=== PATIENT | male | born 1945 | race Caucasian/White ===

== ENCOUNTER 2021-05-08 13:16 | Inpatient (IN) | payer OTHER, MEDICARE ==
[~2021-05-08] VITALS: Ht 172.7 cm; Wt 95.2 kg
[~2021-05-08 13:16] MED LIST: ACET325 PO; AZIT500 PO; C COMPLEX1000 M1 PO; CEFP200 PO; CRANBERRY500 M1 PO; NIAC500; ONDA4ODT MM; POTA10T PO; Q-Tussin100 MG/5 M PO; Vitamin D1000 UNI1 PO; XARELTO20 MG PO; ZINC220 PO
[2021-05-08 16:47] LABS: Hematocrit 33.1 % (37.0-53.0); Hemoglobin 10.7 g/dL (13.5-17.5); Mean Platelet Volume 9.8 fL (9.1-12.4); Platelet Count 283 K/mm3 (150-400)
[2021-05-08 17:01] LABS: BASOPHILS ABSOLUTE AUTO 0.06 K/mm3 (0.00-0.23); BASOPHILS PERCENT AUTO 1 % (0-2); EOSINOPHILS ABSOLUTE AUTO 0.09 K/mm3 (0.00-0.68); EOSINOPHILS PERCENT AUTO 1 % (0-6); Hematocrit 32.8 % (37.0-53.0); Hemoglobin 10.8 g/dL (13.5-17.5); IMMATURE GRAN ABSOLUTE AUTO 0.12 K/mm3 (0.00-0.10); IMMATURE GRAN PERCENT AUTO 1 % (0-1); LYMPHOCYTES ABSOLUTE AUTO 1.47 K/mm3 (0.84-5.20); LYMPHOCYTES PERCENT AUTO 15 % (21-46); MONOCYTES ABSOLUTE AUTO 1.34 K/mm3 (0.16-1.47); MONOCYTES PERCENT AUTO 14 % (4-13); Mean Corpuscular HGB 31.2 pg (26.0-34.0); Mean Corpuscular HGB Conc 32.9 g/dL (31.5-36.5); Mean Corpuscular Volume 95 fL (80-100); Mean Platelet Volume 9.9 fL (9.1-12.4); NEUTROPHILS ABSOLUTE AUTO 6.76 K/mm3 (1.96-9.15); NEUTROPHILS PERCENT AUTO 69 % (41-73); Platelet Count 278 K/mm3 (150-400); RDW Coefficient Variation 14.7 % (11.7-14.2); RDW Standard Deviation 50.6 fL (35.1-46.3); Red Blood Cell Count 3.46 M/mm3 (4.30-5.90); White Blood Cell Count 9.84 K/mm3 (4.00-11.30)
[2021-05-08 17:02] LABS: Alanine Aminotransfer (ALT/SGP 28 U/L (12-78); Albumin, Blood 2.1 g/dL (3.4-5.0); Albumin/Globulin Ratio 0.4 (0.8-1.8); Alk Phos 59 U/L (50-136); Anion Gap 4 mmol/L (6-16); Aspartate Aminotrans (AST/SGOT 21 U/L (12-37); Bilirubin, Total 0.8 mg/dL (0.1-1.0); Blood Urea Nitrogen 12 mg/dL (8-24); CO2, Blood 29 mmol/L (21-32); Calcium, Blood 8.7 mg/dL (8.5-10.1); Chloride, Blood 101 mmol/L (98-108); Globulin, Blood 5.6 g/dL (2.2-4.0); Glomerular Filtration Rate >60 (60-); Glucose, Blood 101 mg/dL (70-99); Potassium, Blood 3.7 mmol/L (3.5-5.5); Sodium, Blood 134 mmol/L (136-145); Total Protein, Blood 7.7 g/dL (6.4-8.2)
--- NOTE | 2021-05-08 18:30 | NUR ---
SHIFT NOTE MR BULLOCK WAS ADMITTED TO [facility] FROM THE ER AROUND [id number]. A+OX4. PALA. MOIST COUGH SINCE COVID, LUNG SOUNDS DIMINISHED IN THE BASES, TELE ON, SR 90S PER PRECISION MACHINIST. SOME SOB ON 4L NC ON TRANSFER. [facility]. LLE 3+ PITTING EDEMA. DP PULSE 2+ EASY TO PALPATE. RLE 1+ PITTING EDEMA, DP PULSE 2+, EASY TO PALPATE. RIGHT FOOT COOL COMPARED TO LEFT, PT SAID IT'S BEEN THIS WAY SINCE HIS COVID DIAGNOSIS A MONTH AGO. DISCORORATION TO RLE THAT PT SAID IS NOT NEW. UNSTEADY STAND AT SIDE OF BED TO URINATE. PT ORDERED. NO CP. NO DIAPHORESIS. HEPARIN GTT ORDERED PER PHARMACY, PHARMACY TO DETERMINE START TIME DUE TO PT RECEIVING A DOSE OF LOVONOX IN THE ER AT 1530. RT NOTIFIED OF THE ADMISSION.
[2021-05-09 02:19] LABS: BASOPHILS ABSOLUTE AUTO 0.04 K/mm3 (0.00-0.23); BASOPHILS PERCENT AUTO 0 % (0-2); EOSINOPHILS ABSOLUTE AUTO 0.09 K/mm3 (0.00-0.68); EOSINOPHILS PERCENT AUTO 1 % (0-6); Hemoglobin 10.3 g/dL (13.5-17.5); IMMATURE GRAN ABSOLUTE AUTO 0.08 K/mm3 (0.00-0.10); IMMATURE GRAN PERCENT AUTO 1 % (0-1); LYMPHOCYTES ABSOLUTE AUTO 1.29 K/mm3 (0.84-5.20); LYMPHOCYTES PERCENT AUTO 13 % (21-46); MONOCYTES ABSOLUTE AUTO 1.27 K/mm3 (0.16-1.47); MONOCYTES PERCENT AUTO 13 % (4-13); Mean Corpuscular HGB Conc 33.2 g/dL (31.5-36.5); Mean Corpuscular Volume 93 fL (80-100); Mean Platelet Volume 9.4 fL (9.1-12.4); NEUTROPHILS ABSOLUTE AUTO 6.87 K/mm3 (1.96-9.15); NEUTROPHILS PERCENT AUTO 71 % (41-73); Platelet Count 279 K/mm3 (150-400); RDW Coefficient Variation 14.6 % (11.7-14.2); RDW Standard Deviation 50.7 fL (35.1-46.3); Red Blood Cell Count 3.32 M/mm3 (4.30-5.90); White Blood Cell Count 9.64 K/mm3 (4.00-11.30)
[2021-05-09 02:34] LABS: International Normalized Ratio 1.22; Prothrombin Time Results 12.6 Sec (9.7-11.5)
[2021-05-09 02:37] LABS: Alanine Aminotransfer (ALT/SGP 35 U/L (12-78); Albumin/Globulin Ratio 0.4 (0.8-1.8); Alk Phos 64 U/L (50-136); Anion Gap 5 mmol/L (6-16); Aspartate Aminotrans (AST/SGOT 32 U/L (12-37); Bilirubin, Total 0.5 mg/dL (0.1-1.0); Blood Urea Nitrogen 14 mg/dL (8-24); Bun/Creatinine Ratio 23.3 (12.0-20.0); CO2, Blood 27 mmol/L (21-32); Calcium, Blood 8.3 mg/dL (8.5-10.1); Chloride, Blood 101 mmol/L (98-108); Globulin, Blood 5.7 g/dL (2.2-4.0); Glomerular Filtration Rate >60 (60-); Glucose, Blood 115 mg/dL (70-99); Sodium, Blood 133 mmol/L (136-145); Total Protein, Blood 7.7 g/dL (6.4-8.2)
--- NOTE | 2021-05-09 07:28 | NUR ---
SHIFT SUMMARY: PATIENT IS REPORTING PAIN IN LLE AND NECK. TYLENOL WAS GIVEN WITH POOR EFFECT. DR TRAN WAS NOTIFIED AND AN ORDER FOR OXYCODONE 5-10MG Q 6H WAS OBTAINED AND MED WAS GIVEN WITH GOOD EFFECT. LLE HAS 3+EDEMA AND RLE HAS +1 EDEMA. PATIENT IS ASSISTED WITH THE URINAL FOR ELLIMINATING. BED ALARM IN
--- NOTE | 2021-05-09 11:08 | NUR ---
HEPERIN DRIP DOSE ADJUSTED TO 20 U/KG/HR, 36 MLS/HR VERIFIED BY OSEI WEEKS
--- NOTE | 2021-05-09 17:50 | NUR ---
SHIFT SUMMARY PT A&O X4 AND IN PLEASENT MOOD T/O SHIFT. PAIN MEDICATED PER EMAR, PT VERY PAINFUL W/ MOVEMENT OF LLE. SPOUSE AND GRANDDAUGHTER @ BEDSIDE FOR ROUGHLY 3 HOURS DURING VISITING HOURS. HEP DRIP RUNNING @ 36 MLS/HR. TELE IN PLACE RUNNING SR @ 93 PER [facility] TECH. CONT. PULSE OX IN PLACE, 90'S ON 4L NC. PT DOES KEEP MOVING NC CANULA OFF NOSE. COUGHING T/O SHIFT. HIGH TEMP NOTED MEDICATED PER EMAR. CALL LIGHT W/IN REACH. PT DENIES CP.
[2021-05-10 01:11] LABS: BASOPHILS ABSOLUTE AUTO 0.05 K/mm3 (0.00-0.23); BASOPHILS PERCENT AUTO 1 % (0-2); EOSINOPHILS PERCENT AUTO 3 % (0-6); Hematocrit 31.8 % (37.0-53.0); Hemoglobin 10.5 g/dL (13.5-17.5); IMMATURE GRAN ABSOLUTE AUTO 0.09 K/mm3 (0.00-0.10); IMMATURE GRAN PERCENT AUTO 1 % (0-1); LYMPHOCYTES ABSOLUTE AUTO 1.91 K/mm3 (0.84-5.20); LYMPHOCYTES PERCENT AUTO 18 % (21-46); MONOCYTES ABSOLUTE AUTO 1.47 K/mm3 (0.16-1.47); MONOCYTES PERCENT AUTO 14 % (4-13); Mean Corpuscular HGB 31.2 pg (26.0-34.0); Mean Corpuscular Volume 94 fL (80-100); Mean Platelet Volume 9.2 fL (9.1-12.4); NEUTROPHILS ABSOLUTE AUTO 6.61 K/mm3 (1.96-9.15); NEUTROPHILS PERCENT AUTO 63 % (41-73); Platelet Count 273 K/mm3 (150-400); RDW Coefficient Variation 14.6 % (11.7-14.2); RDW Standard Deviation 50.8 fL (35.1-46.3); Red Blood Cell Count 3.37 M/mm3 (4.30-5.90); White Blood Cell Count 10.43 K/mm3 (4.00-11.30)
[2021-05-10 01:27] LABS: International Normalized Ratio 1.19; Prothrombin Time Results 12.4 Sec (9.7-11.5)
[2021-05-10 01:29] LABS: Alanine Aminotransfer (ALT/SGP 31 U/L (12-78); Albumin, Blood 1.8 g/dL (3.4-5.0); Albumin/Globulin Ratio 0.3 (0.8-1.8); Alk Phos 55 U/L (50-136); Anion Gap 4 mmol/L (6-16); Aspartate Aminotrans (AST/SGOT 30 U/L (12-37); Bilirubin, Total 0.4 mg/dL (0.1-1.0); Blood Urea Nitrogen 12 mg/dL (8-24); Bun/Creatinine Ratio 22.6 (12.0-20.0); CO2, Blood 28 mmol/L (21-32); Calcium, Blood 8.1 mg/dL (8.5-10.1); Chloride, Blood 101 mmol/L (98-108); Creatinine, Blood 0.53 mg/dL (0.60-1.20); Globulin, Blood 5.4 g/dL (2.2-4.0); Glomerular Filtration Rate >60 (60-); Glucose, Blood 110 mg/dL (70-99); Magnesium, Blood 1.8 mg/dL (1.6-2.4); Potassium, Blood 3.9 mmol/L (3.5-5.5); Sodium, Blood 133 mmol/L (136-145); Total Protein, Blood 7.2 g/dL (6.4-8.2)
--- NOTE | 2021-05-10 05:27 | NUR ---
SHIFT SUMMARY PT A/O AND COOPERATIVE. PT C/O SEVERE PAIN IN LT. LEG. REPOSITIONED AND MEDICATED WITH OXYCODONE, TYLENOL AND NORCO PER EMAR. DR. BALDWIN AND DR. TRAN WERE NOTIFIED OF PT C/O SEVERE LEFT LEG PAIN WITH NEW ORDERS RECEIVED.HEPARIN GTT INFUSING. RESTING QUIETLY THIS AM WITH BIPAP ON. NO ACUTE DISTRESS.
--- NOTE | 2021-05-10 09:41 | NUR ---
DR. SHARP CONTACTED PT BP 102/57. THIS RN DIRECTED TO ADMIN LASIX IV, TKO NS, ADMIN 1 NORCO FOR PAIN, AND ADMIN IMDUR FOR PULMONARY HPTN. CONTACT DR FOR BP <90, FOR BOLUS ORDER.
--- NOTE | 2021-05-10 19:33 | NUR ---
SHIFT SUMMARY PT A&O X4 AND IN PLEASENT MOOD T/O SHIFT. @ BEDSIDE DURING VISITING HOURS. PT MEDICATED PER EMAR FOR HPTN AND PAIN. AUDIBLE WHEEZES STARTING TO BE PRESENT, REPORTED TO NEXT NURSE. COUGHING AND CALLING OUT IN PAIN T/O SHIFT. REPLACED NC T/O SHIFT, 02 SATS RECOVER QUICKLY WHEN NC IS RETURNED TO NAIRS. PT URINATED FREQUENTLY DUE TO LASIX, URINAL UTILIZED. VSS. CALL LIGHT W/IN REACH. TELE IN PLACE SR @ 66.
--- NOTE | 2021-05-11 01:07 | NUR ---
HEPARIN GTT: 6 APTT WAS 85.4, NO RATE CHANGE PER PHARM. cONTINUE GTT AT 45ML/HR.
--- NOTE | 2021-05-11 07:44 | NUR ---
SHIFT SUMMARY: PATIENT SCREAMS IN PAIN WHEN AN ATTEMP TO REPOSITION. PATIENT IS ENC. TO DO FOOT PUMPS, WHICH HE IS OBSERVED DOING WHEN INSTRUCTED. DRY NON PRO COUGH PERSISTS. RATING PAIN IN LEFT LEG 8/10. NORCO IS GIVEN PER MARE. HEPARIN GTT IS INFUSING AT 45 ML/HR, NO RATE CHANGES THIS SHIFT.
[2021-05-11 08:07] LABS: BASOPHILS ABSOLUTE AUTO 0.05 K/mm3 (0.00-0.23); BASOPHILS PERCENT AUTO 1 % (0-2); EOSINOPHILS ABSOLUTE AUTO 0.36 K/mm3 (0.00-0.68); EOSINOPHILS PERCENT AUTO 4 % (0-6); Hematocrit 29.6 % (37.0-53.0); Hemoglobin 9.8 g/dL (13.5-17.5); IMMATURE GRAN ABSOLUTE AUTO 0.07 K/mm3 (0.00-0.10); IMMATURE GRAN PERCENT AUTO 1 % (0-1); LYMPHOCYTES ABSOLUTE AUTO 1.43 K/mm3 (0.84-5.20); LYMPHOCYTES PERCENT AUTO 17 % (21-46); MONOCYTES PERCENT AUTO 13 % (4-13); Mean Corpuscular HGB 31.5 pg (26.0-34.0); Mean Corpuscular HGB Conc 33.1 g/dL (31.5-36.5); Mean Corpuscular Volume 95 fL (80-100); Mean Platelet Volume 10.4 fL (9.1-12.4); NEUTROPHILS ABSOLUTE AUTO 5.35 K/mm3 (1.96-9.15); NEUTROPHILS PERCENT AUTO 64 % (41-73); Platelet Count 314 K/mm3 (150-400); RDW Coefficient Variation 14.8 % (11.7-14.2); RDW Standard Deviation 51.6 fL (35.1-46.3); Red Blood Cell Count 3.11 M/mm3 (4.30-5.90); White Blood Cell Count 8.36 K/mm3 (4.00-11.30)
[2021-05-11 08:11] LABS: Anion Gap 7 mmol/L (6-16); Blood Urea Nitrogen 11 mg/dL (8-24); Bun/Creatinine Ratio 20.1 (12.0-20.0); CO2, Blood 28 mmol/L (21-32); Calcium, Blood 8.4 mg/dL (8.5-10.1); Chloride, Blood 99 mmol/L (98-108); Creatinine, Blood 0.55 mg/dL (0.60-1.20); Glomerular Filtration Rate >60 (60-); Glucose, Blood 109 mg/dL (70-99); Potassium, Blood 3.8 mmol/L (3.5-5.5); Sodium, Blood 134 mmol/L (136-145)
[2021-05-11 09:18] LABS: Source, Urine Clean Catch
[2021-05-11 09:29] LABS: Appearance, Urine Clear (Clear); Bilirubin, Urine Neg (Neg); Blood, Urine Neg (Neg); Color, Urine Yellow (P-Yellow); Glucose Qualitative, Urine Neg (Neg); Ketones, Urine Neg (Neg); Leukocyte Esterase, Urine Neg (Neg); Nitrite, Urine Neg (Neg); Protein, Urine Neg (Neg); Specific Gravity, Urine 1.015 (1.003-1.022); Urobilinogen, Urine NORM (Normal)
--- NOTE | 2021-05-11 19:18 | NUR ---
SHIFT SUMMARY PT A&O X4 AND IN PLEASENT MOOD T/O SHIFT. PT UP TO COMODE, PT UP TO CHAIR, 2X MOD ASSIST W/ GB. O2 VIA NC 1L. @ BEDSIDE DURING VISITING HOURS, STATES HOPEFUL D/C TOMARROW. VSS. CALL LIGHT W/IN REACH. TELE IN PLACE, AFIB @ 55. PT DOING EXERCISES IN BED. APTT CRIT HIGH OF 104.9, NOTIFIED. PHYSICAL THERAPY COULD NOT WORK W/ PT AGAINST DR. SANCHEZ DUE TO CRITICAL VALUE, PLAN TO WORK W/ PT IN AM.
--- NOTE | 2021-05-12 04:44 | NUR ---
SHIFT SUMMARY: PATIENT IS MOVING BETTER IN THE BED THIS SHIFT. PAIN IS MUCH BETTER, 5/10 AND WAS MEDICATED X1 WITH NORCO WITH GOOD EFFECT. CONTINUES TO RUN LOW GRADE TEMP.
[2021-05-12 08:17] LABS: BASOPHILS ABSOLUTE AUTO 0.04 K/mm3 (0.00-0.23); BASOPHILS PERCENT AUTO 1 % (0-2); EOSINOPHILS ABSOLUTE AUTO 0.38 K/mm3 (0.00-0.68); EOSINOPHILS PERCENT AUTO 5 % (0-6); Hematocrit 30.6 % (37.0-53.0); IMMATURE GRAN ABSOLUTE AUTO 0.06 K/mm3 (0.00-0.10); IMMATURE GRAN PERCENT AUTO 1 % (0-1); LYMPHOCYTES PERCENT AUTO 13 % (21-46); MONOCYTES ABSOLUTE AUTO 0.89 K/mm3 (0.16-1.47); MONOCYTES PERCENT AUTO 12 % (4-13); Mean Corpuscular HGB 30.9 pg (26.0-34.0); Mean Corpuscular HGB Conc 32.7 g/dL (31.5-36.5); Mean Corpuscular Volume 94 fL (80-100); Mean Platelet Volume 9.5 fL (9.1-12.4); NEUTROPHILS ABSOLUTE AUTO 5.18 K/mm3 (1.96-9.15); NEUTROPHILS PERCENT AUTO 69 % (41-73); Platelet Count 348 K/mm3 (150-400); RDW Coefficient Variation 14.6 % (11.7-14.2); RDW Standard Deviation 50.4 fL (35.1-46.3); Red Blood Cell Count 3.24 M/mm3 (4.30-5.90); White Blood Cell Count 7.55 K/mm3 (4.00-11.30)
[2021-05-12] MEDS ORDERED: ACET325 PO (08:23)
[2021-05-12] MEDS ORDERED: ALBU90OI INH (08:24)
[2021-05-12] MEDS ORDERED: Dulcolax5 MG PO (08:24)
[2021-05-12] MEDS ORDERED: CEPH500 PO (08:25)
[2021-05-12] MEDS ORDERED: Magic Bullet10 MG PR (08:25)
[2021-05-12] MEDS ORDERED: CARV3.125 PO (08:25)
[2021-05-12] MEDS ORDERED: Norco 5-325 Ta1 EACH PO (08:26)
[2021-05-12] MEDS ORDERED: FAMO20 PO (08:26)
[2021-05-12] MEDS ORDERED: DOCU100 PO (08:26)
[2021-05-12] MEDS ORDERED: Isosorbide Mono30 MG PO (08:26)
[2021-05-12] MEDS ORDERED: FURO20 PO (08:26)
[2021-05-12] MEDS ORDERED: ONDA4ODT MM (08:27)
[2021-05-12] MEDS ORDERED: MIRALAX17 GM PO (08:27)
[2021-05-12] MEDS ORDERED: SENN187 PO (08:28)
[2021-05-12] MEDS ORDERED: XARELTO20 MG PO (08:28)
[2021-05-12] MEDS ORDERED: LACT PO (08:29)
[2021-05-12] MEDS ORDERED: POTA10T PO (08:29)
[2021-05-12 08:40] LABS: Alanine Aminotransfer (ALT/SGP 35 U/L (12-78); Albumin, Blood 1.9 g/dL (3.4-5.0); Albumin/Globulin Ratio 0.4 (0.8-1.8); Alk Phos 75 U/L (50-136); Anion Gap 4 mmol/L (6-16); Aspartate Aminotrans (AST/SGOT 34 U/L (12-37); Bilirubin, Total 0.5 mg/dL (0.1-1.0); Blood Urea Nitrogen 8 mg/dL (8-24); Bun/Creatinine Ratio 15.6 (12.0-20.0); CO2, Blood 32 mmol/L (21-32); Calcium, Blood 8.9 mg/dL (8.5-10.1); Chloride, Blood 99 mmol/L (98-108); Creatinine, Blood 0.51 mg/dL (0.60-1.20); Globulin, Blood 5.4 g/dL (2.2-4.0); Glomerular Filtration Rate >60 (60-); Glucose, Blood 108 mg/dL (70-99); Potassium, Blood 3.8 mmol/L (3.5-5.5); Sodium, Blood 135 mmol/L (136-145); Total Protein, Blood 7.3 g/dL (6.4-8.2)
--- NOTE | 2021-05-12 18:08 | NUR ---
DISCHARGE PATIENT TRANSPORTED VIA WHEELCHAIR TO PRIVATE VEHICLE. DISCHARGE INSTRUCTIONS EXPLAINED TO PATIENT. PATIENT STATED UNDERSTANDING. PACKET SENT WITH PATIENT. BELONGINGS SENT WITH PATIENT. IV X2 REMOVED WITHOUT DIFFICULTY. TELE REMOVED WITHOUT DIFFICULTY. MEDICATIONS FAXED TO PREFERRED PHARMACY. PATIENT TO SCHEDULE FOLLOW UP APPOINTMENT.
== END 2021-05-12 17:40 | disposition home health service (06) | DRG 175 ==
LOC: ER 13:16 → MEDS 15:45 → ENPENDDIS 05-12 11:43 → MEDS 05-12 17:40
PROVIDERS: ADMIT Family Medicine
PROC: 5A09457 Assistance with Respiratory Ventilation, 24-96 Consecutive Hours, Continuous Positive Airway Pressure (ICD-10-PCS; principal; 2021-05-08)
DX: I26.99 Other pulmonary embolism without acute cor pulmonale (principal); J96.01 Acute respiratory failure with hypoxia; J18.9 Pneumonia, unspecified organism; E87.2 Acidosis; I82.462 Acute embolism and thrombosis of left calf muscular vein; E78.5 Hyperlipidemia, unspecified; G89.29 Other chronic pain; E66.9 Obesity, unspecified; M25.561 Pain in right knee; M25.562 Pain in left knee; K59.00 Constipation, unspecified; U09.9 Post COVID-19 condition, unspecified; I10 Essential (primary) hypertension; Z87.891 Personal history of nicotine dependence; Z68.31 Body mass index [BMI] 31.0-31.9, adult
CPT/HCPCS: 36415; 71045; 80048; 80053; 81003; 81240; 83605; 83735; 83880; 84100; 84145; 84484; 85014; 85018; 85025; 85049; 85220; 85300; 85303; 85306; 85610; 85730; 93005; 93010; 93306; 94640; 94660; 94668; 94761; 94762; 96372; 99285-25; A9270; J0696; J1644; J1650; J1940; J7030

== ENCOUNTER 2021-08-11 17:40 | Emergency (ER) | payer OTHER, MEDICARE ==
[~2021-08-11] VITALS: Ht 172.7 cm; Wt 93.0 kg
[~2021-08-11 17:40] MED LIST changes: +ALBU90OI INH; +CARV3.125 PO; +CEPH500 PO; +DOCU100 PO; +Dulcolax5 MG PO; +FAMO20 PO; +FURO20 PO; +Isosorbide Mono30 MG PO; +LACT PO; +MIRALAX17 GM PO; +Magic Bullet10 MG PR; +Norco 5-325 Ta1 EACH PO; +SENN187 PO
[2021-08-11 19:10] LABS: BASOPHILS ABSOLUTE AUTO 0.06 K/mm3 (0.00-0.23); BASOPHILS PERCENT AUTO 1 % (0-2); EOSINOPHILS ABSOLUTE AUTO 0.37 K/mm3 (0.00-0.68); EOSINOPHILS PERCENT AUTO 5 % (0-6); Hematocrit 38.8 % (37.0-53.0); Hemoglobin 13.6 g/dL (13.5-17.5); IMMATURE GRAN ABSOLUTE AUTO 0.03 K/mm3 (0.00-0.10); IMMATURE GRAN PERCENT AUTO 0 % (0-1); LYMPHOCYTES ABSOLUTE AUTO 2.35 K/mm3 (0.84-5.20); LYMPHOCYTES PERCENT AUTO 30 % (21-46); MONOCYTES ABSOLUTE AUTO 0.96 K/mm3 (0.16-1.47); MONOCYTES PERCENT AUTO 12 % (4-13); Mean Corpuscular HGB 31.8 pg (26.0-34.0); Mean Corpuscular HGB Conc 35.1 g/dL (31.5-36.5); Mean Corpuscular Volume 91 fL (80-100); Mean Platelet Volume 10.4 fL (9.1-12.4); NEUTROPHILS ABSOLUTE AUTO 4.15 K/mm3 (1.96-9.15); NEUTROPHILS PERCENT AUTO 52 % (41-73); Platelet Count 229 K/mm3 (150-400); RDW Coefficient Variation 13.2 % (11.7-14.2); RDW Standard Deviation 43.8 fL (35.1-46.3); Red Blood Cell Count 4.28 M/mm3 (4.30-5.90); White Blood Cell Count 7.92 K/mm3 (4.00-11.30)
[2021-08-11 19:25] LABS: Albumin, Blood 3.5 g/dL (3.4-5.0); Albumin/Globulin Ratio 0.8 (0.8-1.8); Bilirubin, Total 0.3 mg/dL (0.1-1.0); Bun/Creatinine Ratio 33.6 (12.0-20.0); Calcium, Blood 9.2 mg/dL (8.5-10.1); Creatinine, Blood 0.48 mg/dL (0.60-1.20); Globulin, Blood 4.4 g/dL (2.2-4.0); Potassium, Blood 4.1 mmol/L (3.5-5.5); Total Protein, Blood 7.9 g/dL (6.4-8.2)
== END 2021-08-11 22:57 | disposition home or self-care (01) ==
LOC: ER 17:40
PROVIDERS: Physician Assistant
DX: K64.9 Unspecified hemorrhoids (principal); Z79.899 Other long term (current) drug therapy; Z79.01 Long term (current) use of anticoagulants
CPT/HCPCS: 36415; 80053; 85025; 86850; 86900; 86901; 93005; 93010

== ENCOUNTER 2022-03-27 21:00 | Emergency (ER) | payer OTHER ==
[~2022-03-27] VITALS: Ht 172.7 cm; Wt 88.5 kg
[2022-03-27 21:35] LABS: BASOPHILS ABSOLUTE AUTO 0.04 K/mm3 (0.00-0.23); BASOPHILS PERCENT AUTO 1 % (0-2); EOSINOPHILS ABSOLUTE AUTO 0.12 K/mm3 (0.00-0.68); EOSINOPHILS PERCENT AUTO 2 % (0-6); Hematocrit 37.8 % (37.0-53.0); Hemoglobin 13.1 g/dL (13.5-17.5); IMMATURE GRAN ABSOLUTE AUTO 0.02 K/mm3 (0.00-0.10); IMMATURE GRAN PERCENT AUTO 0 % (0-1); LYMPHOCYTES ABSOLUTE AUTO 1.82 K/mm3 (0.84-5.20); LYMPHOCYTES PERCENT AUTO 26 % (21-46); MONOCYTES ABSOLUTE AUTO 0.95 K/mm3 (0.16-1.47); MONOCYTES PERCENT AUTO 13 % (4-13); Mean Corpuscular HGB 30.9 pg (26.0-34.0); Mean Corpuscular HGB Conc 34.7 g/dL (31.5-36.5); Mean Corpuscular Volume 89 fL (80-100); Mean Platelet Volume 9.6 fL (9.1-12.4); NEUTROPHILS ABSOLUTE AUTO 4.14 K/mm3 (1.96-9.15); NEUTROPHILS PERCENT AUTO 58 % (41-73); Platelet Count 229 K/mm3 (150-400); RDW Standard Deviation 49.6 fL (35.1-46.3); Red Blood Cell Count 4.24 M/mm3 (4.30-5.90); White Blood Cell Count 7.09 K/mm3 (4.00-11.30)
[2022-03-27 21:48] LABS: Bun/Creatinine Ratio 21.8 (12.0-20.0); Calcium, Blood 8.9 mg/dL (8.5-10.1); Creatinine, Blood 0.69 mg/dL (0.60-1.20); Potassium, Blood 3.7 mmol/L (3.5-5.5)
[2022-03-27 23:24] LABS: Source, Urine Clean Catch
[2022-03-27 23:40] LABS: Bilirubin, Urine Neg (Neg); Blood, Urine Neg (Neg); Glucose Qualitative, Urine Neg (Neg); Ketones, Urine Neg (Neg); Leukocyte Esterase, Urine Neg (Neg); Nitrite, Urine Neg (Neg); Protein, Urine Neg (Neg); Specific Gravity, Urine 1.015 (1.003-1.022); Urobilinogen, Urine NORM (Normal); pH, Urine 6.5 (5.0-8.0)
[2022-03-27 23:41] LABS: Appearance, Urine Clear (Clear); Color, Urine Yellow (P-Yellow); U Amphetamine Screen Not Detected; U Barbituate Screen Not Detected; U Benzodiazapine Screen Not Detected; U Buprenorphine Screen Not Detected; U Cannabinoids Screen Not Detected; U Cocaine Screen Not Detected; U Methadone Screen Not Detected; U Methamphetamine Screen Not Detected; U Opiates Screen Not Detected; U Oxycodone Screen Not Detected; U Phencyclidine Screen Not Detected; U Propoxyphene Screen Not Detected
== END 2022-03-28 03:45 | disposition home or self-care (01) ==
LOC: ER 21:00
PROVIDERS: Student in an Organized Health Care Education/Training Program
DX: R47.9 Unspecified speech disturbances (principal); R41.0 Disorientation, unspecified; I10 Essential (primary) hypertension; Z87.891 Personal history of nicotine dependence; Z79.899 Other long term (current) drug therapy; Z79.01 Long term (current) use of anticoagulants
CPT/HCPCS: 70450; 80048; 81003; 82947; 85025; 93005; 93010

== ENCOUNTER 2023-08-30 21:54 | Emergency (ER) | payer OTHER ==
[~2023-08-30] VITALS: Ht 180.3 cm; Wt 158.8 kg
[2023-08-30] MEDS ORDERED: HYDROmorphone HCl/Pf 1MG SYR IV ONE (22:15)
[2023-08-30 22:19] LABS: BASOPHILS ABSOLUTE AUTO 0.03 K/mm3 (0.00-0.23); BASOPHILS PERCENT AUTO 0 % (0-2); EOSINOPHILS ABSOLUTE AUTO 0.18 K/mm3 (0.00-0.68); EOSINOPHILS PERCENT AUTO 2 % (0-6); Hematocrit 31.8 % (37.0-53.0); Hemoglobin 10.5 g/dL (13.5-17.5); IMMATURE GRAN ABSOLUTE AUTO 0.02 K/mm3 (0.00-0.10); IMMATURE GRAN PERCENT AUTO 0 % (0-1); LYMPHOCYTES ABSOLUTE AUTO 1.61 K/mm3 (0.84-5.20); LYMPHOCYTES PERCENT AUTO 20 % (21-46); MONOCYTES ABSOLUTE AUTO 1.12 K/mm3 (0.16-1.47); MONOCYTES PERCENT AUTO 14 % (4-13); Mean Corpuscular HGB 29.7 pg (26.0-34.0); Mean Corpuscular Volume 90 fL (80-100); Mean Platelet Volume 9.3 fL (9.1-12.4); NEUTROPHILS ABSOLUTE AUTO 5.06 K/mm3 (1.96-9.15); NEUTROPHILS PERCENT AUTO 63 % (41-73); Platelet Count 337 K/mm3 (150-400); RDW Coefficient Variation 13.7 % (11.7-14.2); Red Blood Cell Count 3.54 M/mm3 (4.30-5.90); White Blood Cell Count 8.02 K/mm3 (4.00-11.30)
[2023-08-30 22:37] LABS: Albumin, Blood 2.5 g/dL (3.4-5.0); Albumin/Globulin Ratio 0.5 (0.8-1.8); Bilirubin, Total 0.4 mg/dL (0.1-1.0); Bun/Creatinine Ratio 25.3 (12.0-20.0); Creatinine, Blood 0.55 mg/dL (0.60-1.20); Globulin, Blood 4.8 g/dL (2.2-4.0); Potassium, Blood 4.2 mmol/L (3.5-5.5); Total Protein, Blood 7.3 g/dL (6.4-8.2)
[2023-08-31] MEDS ORDERED: HYDROmorphone HCl/Pf 1MG SYR IV ONE ×3 (00:25→05:45)
[2023-08-31] MEDS ORDERED: OXYACE7.5T PO (07:49)
[2023-08-31 08:15] VITALS: BP 158/79
== END 2023-08-31 08:28 | disposition home or self-care (01) ==
LOC: ER 21:54
PROVIDERS: Emergency Medicine
DX: T84.84XA Pain due to internal orthopedic prosthetic devices, implants and grafts, initial encounter (principal); M17.11 Unilateral primary osteoarthritis, right knee; I10 Essential (primary) hypertension; Y79.2 Prosthetic and other implants, materials and accessory orthopedic devices associated with adverse incidents; Z79.899 Other long term (current) drug therapy; Z79.02 Long term (current) use of antithrombotics/antiplatelets; Z96.641 Presence of right artificial hip joint
CPT/HCPCS: 73502; 73560-RT; 73620; 73700; 80053; 85025; 86140; J1170

== ENCOUNTER 2023-09-02 10:41 | Inpatient (IN) | payer OTHER ==
[~2023-09-02] VITALS: Ht 172.7 cm; Wt 97.5 kg
[~2023-09-02 10:41] MED LIST changes: +OXYACE7.5T PO
[2023-09-02] MEDS ORDERED: Morphine Sulfate 4 MG/1 ML Injection IV ONE (12:20)
[2023-09-02 12:26] LABS: BASOPHILS ABSOLUTE AUTO 0.04 K/mm3 (0.00-0.23); BASOPHILS PERCENT AUTO 0 % (0-2); EOSINOPHILS PERCENT AUTO 1 % (0-6); Hemoglobin 10.5 g/dL (13.5-17.5); IMMATURE GRAN ABSOLUTE AUTO 0.07 K/mm3 (0.00-0.10); IMMATURE GRAN PERCENT AUTO 1 % (0-1); LYMPHOCYTES ABSOLUTE AUTO 1.05 K/mm3 (0.84-5.20); LYMPHOCYTES PERCENT AUTO 10 % (21-46); MONOCYTES ABSOLUTE AUTO 1.41 K/mm3 (0.16-1.47); MONOCYTES PERCENT AUTO 14 % (4-13); Mean Corpuscular HGB 29.6 pg (26.0-34.0); Mean Corpuscular HGB Conc 32.8 g/dL (31.5-36.5); Mean Corpuscular Volume 90 fL (80-100); Mean Platelet Volume 9.6 fL (9.1-12.4); NEUTROPHILS ABSOLUTE AUTO 7.39 K/mm3 (1.96-9.15); NEUTROPHILS PERCENT AUTO 74 % (41-73); Platelet Count 315 K/mm3 (150-400); RDW Coefficient Variation 13.6 % (11.7-14.2); Red Blood Cell Count 3.55 M/mm3 (4.30-5.90); White Blood Cell Count 10.06 K/mm3 (4.00-11.30)
[2023-09-02 12:52] LABS: Bun/Creatinine Ratio 25.8 (12.0-20.0); Calcium, Blood 9.3 mg/dL (8.5-10.1); Creatinine, Blood 0.58 mg/dL (0.60-1.20); Potassium, Blood 4.1 mmol/L (3.5-5.5)
[2023-09-02] MEDS ORDERED: Vancomycin HCL 2,000 MG in NS 270 ML IV ONE (14:05)
[2023-09-02] MEDS ORDERED: CefTRIAXone Sodium 2,000 MG in NS 100 ML IV ONE (14:10)
[2023-09-02] MEDS ORDERED: HYDROmorphone HCl/Pf 1MG SYR IV ONE (15:05)
[2023-09-02] MEDS ORDERED: Albuterol HFA200 ACT/6.7 GM INH INH PRN (19:10)
[2023-09-02] MEDS ORDERED: Ondansetron HCl 2 MG / ML 2ML Vial IV PRN (19:15)
[2023-09-02] MEDS ORDERED: FentaNYL Citrate 50 MCG/ML 2 ML Injection IV PRN (19:45)
[2023-09-02] MEDS ORDERED: Acetaminophen 500 MG Tab PO PRN (19:45)
[2023-09-02] MEDS ORDERED: OxyCODONE 5 mg/Acetamin 325 mg TABLET PO PRN (19:45)
[2023-09-02] MEDS ORDERED: Albuterol 2.5 MG/3 ML VIAL INH PRN (19:50)
[2023-09-02] MEDS ORDERED: Furosemide 10 MG/ML 4ML Vial IV ONE (20:00)
[2023-09-02] MEDS ORDERED: Ketorolac Tromethamine 30mg Vial IV ONE (20:00)
[2023-09-02] MEDS ORDERED: Furosemide 10 MG/ML 4ML Vial IV SCH (20:00)
[2023-09-02] MEDS ORDERED: Ketorolac Tromethamine 30mg Vial ONE (20:49)
[2023-09-02] MEDS ORDERED: Furosemide 10 MG/ML 4ML Vial ONE (20:49)
[2023-09-02] MEDS ORDERED: OxyCODONE 5 mg/Acetamin 325 mg TABLET ONE (20:54)
[2023-09-02 22:08] VITALS: BP 134/65
--- NOTE | 2023-09-02 22:10 | NUR ---
ARRIVAL TO UNIT PT ARRIVED TO UNIT FROM ED VIA GOURNEY. A&0 x4. VSS. PT IN 12/22 PAIN WITH MOVEMENT IN RLE, LOCALIZED TO R KNEE. R KNEE SWOLLEN, FIRM TO PALPATION. TOLREATING ORALS. PT STATES HIS GLASSESS ARE AT HOME WITH HIS , PT HUSLIA BUT DENIES USE OF HEARING AIDS. USES URINAL TO VOID. PT DENIES WANT TO AMBULATE R/T PAIN. PT PERSONAL WHEELCHAIR IN ROOM, PT STATES HE ALSO USES A WALKER/CANE AT HOME TO AMBULATE. PT ORIENTED TO ROOM, CALL LIGHT IN REACH, BED IN LOWEST POSITION.
[2023-09-03 03:51] VITALS: BP 146/78
--- NOTE | 2023-09-03 04:10 | NUR ---
SHIFT SUMMARY S/P R KNEE PAIN. NO ACUTE CHANGES OVERNIGHT. VSS. TOLERATING ORALS. PT REPORTS PAIN TOLERABLE AT REST, DESCRIBES PAIN PRICKING/POKING @ LEVEL 4, WHEN PT MOVES/AMBULATES HE DESCRIBES IT 10/10 UNBEARBALE PAIN. PT RELAYS HE DOES NOT WANT TO AMBULATE AT THIS TIME. PT MEDICATED PER EMAR, PT REPORTS TOLERABLE & SLEPT WELL OVERNIGHT. VOIDING IN URINAL, NO BM. CALL LIGHT IN REACH, BED IN LOWEST POSITION, WILL REPORT TO DAY RN.
[2023-09-03 05:28] LABS: Bun/Creatinine Ratio 27.7 (12.0-20.0); Calcium, Blood 9.2 mg/dL (8.5-10.1); Creatinine, Blood 0.69 mg/dL (0.60-1.20); Potassium, Blood 3.6 mmol/L (3.5-5.5)
[2023-09-03 07:40] VITALS: BP 122/67
[2023-09-03] MEDS ORDERED: Carvedilol 3.125 MG Tab PO SCH (08:00)
[2023-09-03] MEDS ORDERED: Furosemide 40 MG Tab PO SCH (09:00)
[2023-09-03] MEDS ORDERED: Isosorbide Mononitrate 30 MG TABCR PO SCH (09:00)
[2023-09-03] MEDS ORDERED: Famotidine 20 MG Tab PO SCH (09:00)
[2023-09-03] MEDS ORDERED: Rivaroxaban 10 MG Tab PO SCH (09:00)
[2023-09-03] MEDS ORDERED: Potassium Chloride 10 Meq Tablet SA PO SCH (09:00)
[2023-09-03] MEDS ORDERED: Furosemide 20 MG Tab PO SCH (09:00)
[2023-09-03 09:23] VITALS: BP 109/68
[2023-09-03] MEDS ORDERED: Polyethylene Glycol 3350 17 gm PO SCH (12:40)
[2023-09-03] MEDS ORDERED: OxyCODONE 5 mg/Acetamin 325 mg TABLET PO PRN (12:43)
--- NOTE | 2023-09-03 13:54 | NUR ---
Pt. is awake in bed and welcomes my visit. Pt. is pleasant. This Pts. family is known to this plant health care technician from the community, so rapport is easily established. Facilitated a life review and focused on the Pts. health and his sudheer. Pt. displayed evidence of a strong sudheer and also awareness of his condition. Consider matters of sudheer and belief. Pt. displayed evidence of henrry as we conversed. Prayed with the Pt. Pt. shook my hand and verbalized gratitude for the spiritual carfe visit, and then before I departed, the Pt. prayed for me.
[2023-09-03 15:12] VITALS: BP 114/60
[2023-09-03] MEDS ORDERED: HYDROmorphone HCl/Pf 1MG SYR IV PRN (16:05)
[2023-09-03] MEDS ORDERED: CefTRIAXone Sodium 2,000 MG in NS 100 ML IV SCH (18:00)
[2023-09-03 19:32] VITALS: BP 120/62
[2023-09-03] MEDS ORDERED: Sennosides 8.6 MG Tab PO SCH (21:00)
[2023-09-04 04:01] VITALS: BP 136/70
--- NOTE | 2023-09-04 04:36 | NUR ---
SHIFT SUMMARY PT IS A/O X4. NO CHANGES IN R KNEE NOTED. PT MEDICATED FOR PAIN SEVERAL TIMES W/ PO PAIN MEDS PER EMAR. PT ABLE TO REST MOST OF SHIFT. VSS. PT USES CALL LIGHT APPROPRIATELY.
[2023-09-04 05:58] LABS: BASOPHILS ABSOLUTE AUTO 0.02 K/mm3 (0.00-0.23); BASOPHILS PERCENT AUTO 0 % (0-2); EOSINOPHILS ABSOLUTE AUTO 0.24 K/mm3 (0.00-0.68); EOSINOPHILS PERCENT AUTO 5 % (0-6); Hematocrit 28.5 % (37.0-53.0); Hemoglobin 9.5 g/dL (13.5-17.5); IMMATURE GRAN ABSOLUTE AUTO 0.03 K/mm3 (0.00-0.10); IMMATURE GRAN PERCENT AUTO 1 % (0-1); LYMPHOCYTES ABSOLUTE AUTO 1.16 K/mm3 (0.84-5.20); LYMPHOCYTES PERCENT AUTO 23 % (21-46); MONOCYTES ABSOLUTE AUTO 1.02 K/mm3 (0.16-1.47); MONOCYTES PERCENT AUTO 20 % (4-13); Mean Corpuscular HGB 29.8 pg (26.0-34.0); Mean Corpuscular HGB Conc 33.3 g/dL (31.5-36.5); Mean Corpuscular Volume 89 fL (80-100); Mean Platelet Volume 9.2 fL (9.1-12.4); NEUTROPHILS ABSOLUTE AUTO 2.57 K/mm3 (1.96-9.15); NEUTROPHILS PERCENT AUTO 51 % (41-73); Platelet Count 307 K/mm3 (150-400); RDW Coefficient Variation 13.7 % (11.7-14.2); Red Blood Cell Count 3.19 M/mm3 (4.30-5.90); White Blood Cell Count 5.04 K/mm3 (4.00-11.30)
[2023-09-04 07:33] VITALS: BP 150/72
[2023-09-04] MEDS ORDERED: Acetaminophen 500 MG Tab PO PRN (08:30)
[2023-09-04] MEDS ORDERED: TraMADol HCl 50 MG Tab PO PRN (08:30)
[2023-09-04] MEDS ORDERED: Ketorolac Tromethamine 15mg Vial IV PRN (08:40)
[2023-09-04] MEDS ORDERED: Methyl Salicylate/Menth/Camph 57 GM TUBE TOP PRN (10:05)
[2023-09-04] MEDS ORDERED: Lidocaine 4% 1 Patch TOP SCH (10:45)
[2023-09-04 16:36] VITALS: BP 112/70
--- NOTE | 2023-09-04 18:43 | NUR ---
SHIFT SUMMARY PT A&OX4, VSS/RA, MANISH PO, VOIDING/BM TODAY, AMB 3 PP MAX ASSIST FWW/GB STAND PIVOT FROM BED TO CHAIR/BSC, PAIN MANAGED PER EMAR, POLAR LISA ON. WILL REPORT TO ONCOMING NOC RN.
[2023-09-04 19:47] VITALS: BP 118/66
--- NOTE | 2023-09-05 04:33 | NUR ---
SHIFT SUMMARY PT A/O X4. NO CHANGES IN R KNEE NOTED SINCE BEGINNING OF SHIFT. R KNEE SWOLLEN, PT ABLE TO WIGGLE TOES, PEDAL PULSE PALPABLE. VSS. PT MEDICATED FOR PAIN W/ TOLERABLE RESULTS. CRYO ON R KNEE. PT USING CALL LIGHT APPROPRIATELY.
[2023-09-05 04:44] VITALS: BP 136/67
[2023-09-05 07:09] VITALS: BP 145/85
[2023-09-05] MEDS ORDERED: Lidocaine 4% 1 Patch TOP SCH (09:00)
[2023-09-05 15:19] VITALS: BP 126/71
--- NOTE | 2023-09-05 17:25 | NUR ---
SHIFT SUMMARY PT A&OX4, VSS/RA, MANISH PO, VOIDING, AMB 2 PP MOD ASSIST FWW/GB FROM BED TO CHAIR/BSC, PAIN MANAGED WITH TYLENOL/TRAMADOL/TORADOL/LIDO PATCH/BENGAY/POLAR LISA. WILL REPORT TO ONCOMING NOC RN.
[2023-09-05 19:46] VITALS: BP 122/69
[2023-09-06 04:05] VITALS: BP 149/78
--- NOTE | 2023-09-06 06:35 | NUR ---
SHIFT SUMMARY NO ACUTE CHANGES THIS SHIFT. PT MEDICATED FOR PAIN W/ TOLERABLE RESULTS. NO CHANGE IN SWELLING TO R KNEE. VSS. PT REPOSITIONED THROUGHOUT SHIFT, NEW MEPILEX AND DEVLIN APPLIED. PT USING CALL LIGHT APPROPRIATELY.
[2023-09-06 07:25] VITALS: BP 146/74
[2023-09-06 14:23] VITALS: BP 129/72
--- NOTE | 2023-09-06 16:17 | NUR ---
SHIFT SUMMARY ASSUMED CARE JUST AFTER LUNCH WHEN PRIMARY RN WAS SENT TO ANOTHER UNIT, PT UP IN HIS RECLINER DURING HAND OFF FROM PREVIOUS RN. HE WAS PLEASANT, A/O, ENGAGED BOTH STAFF IN CONVERSATION, ANSWERED QUESTIONS APPROPRIATELY, DENIES ANY PAIN AT THIS TIME HE WAS RECENTLY GIVEN PAIN MEDS PER PRIMARY RN. NO CURRENT NEEDS, UPDATED HIM WITH THE PLAN FOR THE REST OF THE DAY WITH THE CHANGE OF STAFFING.
[2023-09-06 19:17] VITALS: BP 112/82
[2023-09-07 02:23] VITALS: BP 153/70
--- NOTE | 2023-09-07 06:06 | NUR ---
SHIFT SUMMARY PT IS A/O X4, 2 MOD ASST W/ FWW AND GB. PAIN MANAGED W/ TORADOL, TYLENOL AND TRAMADOL W/ GOOD RESULTS, PT ABLE TO SLEEP MOST OF SHIFT. NEW MEPILEX ON COCCYX THIS SHIFT, REPOSITIONED THROUGHOUT SHIFT. CRYO IN PLACE. VSS. PT WAITING FOR PLACEMENT TO D/C. USING CALL LIGHT APPROPRIATELY.
[2023-09-07 07:12] VITALS: BP 154/68
[2023-09-07 14:30] VITALS: BP 156/75
--- NOTE | 2023-09-07 15:03 | NUR ---
Pt. is awake and sitting in a recliner. Pt. is pleasant and rapport was quickly re-established. Pt. verbalized that his desire was to walk mor ein his room. Listened with empathy and a calming presence. Sought to normalize the Pt. expereince. Pt. verbalizes his great hope and shares with this in house counsel the book on prayer that he is reading. prayed with Pt. Pt. verbalized gratitude for the spiritual care visit and welcomed this in house counsel to return.
--- NOTE | 2023-09-07 16:21 | NUR ---
SHIFT SUMMARY PAIN IMPROVED DURING SHIFT. PT WORKED WELL WITH THERAPY. MEDICATION PER EMAR. NO REDNESS TO KNEE, SWELLING IMPROVED. PT USING POLAR LISA AND ELEVATING WHEN NOT AMBULATING. CALLS APPROPRIATLY. TOLERATING DIET WELL.
[2023-09-07 19:08] VITALS: BP 139/68
--- NOTE | 2023-09-07 20:19 | NUR ---
ASSUMPTION OF CARE Pt sitting in recliner in room, polar pack to right knee. Pt alert and oriented x4, cardiac and respiratory within normal limits. Pt assisted with FWW to bed, mepilex replaced to right buttock.
[2023-09-08] VITALS (8 sets, daily range): BP systolic 116–177; BP diastolic 67–86
--- NOTE | 2023-09-08 06:29 | NUR ---
SHIFT SUMMARY No acute events overnight, pt slept throughout shift, uses call light appropriately and medicated with PO PRN's for pain. Pt denies any GI/ issues.
[2023-09-08 18:14] LABS: SARS-Cov-2 (COVID-19) PCR, MMC NEGATIVE (NEGATIVE)
--- NOTE | 2023-09-08 20:13 | NUR ---
SHIFT SUMMARY- PT WAS ABLE TO AMBULATE IN THE [place] WITH RUNNER MAN. PT STATES PAIN IS WELL MANAGED AT THIS TIME 06/22. PLAN IS FOR THT PT TO DC [facility] [place] [facility]. PER CARE MANAGEMENT COVID TEST COMPLETED TONIGHT. PT IN BED, CALL LIGHT IN REACH NO S&S OF DISTRESS NOTED, BEDSIDE REPORT COMPLETED. DRESSING FOR IV WAS CHANGED TODAY.
[2023-09-09 02:07] VITALS: BP 129/75
--- NOTE | 2023-09-09 05:30 | NUR ---
SHIFT SUMMARY PT ABLE TO REST T/O NIGHT. PAIN MANAGED PER EMAR. TOLERATING PO INTAKE, VOIDING WELL. VSS[facility]. NO OTHER CONCERNS AT THIS TIME, CALL LIGHT WITHIN REACH
[2023-09-09 07:32] VITALS: BP 140/72
--- NOTE | 2023-09-09 10:35 | NUR ---
PT DISCHARGED TO [facility] AT THIS TIME. DISCHARGE PACKET GIVEN TO TRANSPORT STAFF. PT LEFT WITH ALL PERSONAL BELONGINGS AND AT SIDE. REPORT GIVEN TO [place] WEEKS AT [facility].
== END 2023-09-09 10:27 | DRG 554 ==
LOC: ER 10:41 → SURS 10:42 → ER 10:42 → SURS 14:55
PROVIDERS: Emergency Medicine; Internal Medicine; Nurse Practitioner Acute Care; Orthopaedic Surgery; ADMIT Student in an Organized Health Care Education/Training Program
PROC: 0S9C3ZX Drainage of Right Knee Joint, Percutaneous Approach, Diagnostic (ICD-10-PCS; principal; 2023-09-03)
DX: M17.11 Unilateral primary osteoarthritis, right knee (principal); I10 Essential (primary) hypertension; G47.33 Obstructive sleep apnea (adult) (pediatric); I27.20 Pulmonary hypertension, unspecified; K21.9 Gastro-esophageal reflux disease without esophagitis; E66.01 Morbid (severe) obesity due to excess calories; Z87.891 Personal history of nicotine dependence; Z86.711 Personal history of pulmonary embolism; Z86.718 Personal history of other venous thrombosis and embolism; Z68.32 Body mass index [BMI] 32.0-32.9, adult
CPT/HCPCS: 20611; 36415; 72170; 73560-RT; 73701; 80048; 83605; 83880; 85025; 85651; 86140; 86141; 87040; 87070; 87075; 87205; 93971; 94760; 96365-59; 96366; 96367; 96375; 97110; 97116; 97162; 97530; 99285-25; A9270; G0378; J0696; J1170; J1885; J1940; J2270; J3370; J7050; Q9967; U0002